=== PATIENT | male | born 1955 | race African-American/Black ===

== ENCOUNTER 2025-02-11 10:57 | Emergency (ER) | payer BC, MEDICAID ==
[~2025-02-11] VITALS: Ht 190.5 cm; Wt 118.0 kg
[2025-02-11 11:05] VITALS: O2SAT 99
[2025-02-11 11:35] LABS: BASOPHILS % 0.7 % (0.0-2.0); EOSINOPHILS % 1.7 % (0.0-5.0); HEMATOCRIT. 40.2 % (42.0-52.0); HEMOGLOBIN. 13.2 g/dL (14.0-18.0); LYMPHOCYTES % 26.8 % (20.0-50.0); MEAN PLATELET VOLUME 7.9 fl (7.4-10.4); MONOCYTES % 10.5 % (2.0-8.0); NEUTROPHILS % 60.3 % (40.0-76.0); PLATELET 227 x1000/uL (130-400); RED BLOOD CELL COUNT 4.33 mill/uL (4.7-6.1); RED CELL DISTRIBUTION WIDTH 13.6 % (11.6-14.6)
[2025-02-11 12:50] LABS: CREATININE 1.3 mg/dL (0.6-1.3)
[2025-02-11 12:51] LABS: ETHANOL BLOOD < 10 mg/dL (<10); TROPONIN I HIGH SENSITIVITY < 4 ng/L (3.0-53); UREA NITROGEN BLOOD 16 mg/dL (9-23)
[2025-02-11 12:52] LABS: ASPARTATE AMINOTRANSFERASE 22 IU/L (<34)
[2025-02-11 12:53] LABS: BILIRUBIN DIRECT 0.2 mg/dL (<=3.0); BILIRUBIN TOTAL 0.7 mg/dL (0.1-1.0); PROTEIN TOTAL 7.6 g/dL (6.0-8.3)
[2025-02-11] MEDS ORDERED: POLY17PO3 MT (16:44)
[2025-02-11 16:53] VITALS: BP 153/100; PULSE 61; RESP 16; TEMP 36.9; O2SAT 100
== END 2025-02-11 16:55 | disposition home or self-care (01) ==
LOC: ER 10:57
DX: R10.9 Unspecified abdominal pain (principal); E78.00 Pure hypercholesterolemia, unspecified; I10 Essential (primary) hypertension
CPT/HCPCS: 36415; 74176; 80048; 80076; 80320; 84484; 85025; 93005; 99284; G0480